=== PATIENT | male | born 1935 | race Caucasian/White ===

== ENCOUNTER 2023-11-21 13:37 | Emergency (ER) | payer MEDICARE, OTHER, SELFPAY ==
[2023-11-21 14:49] VITALS: BMI 28.3
[2023-11-21 15:03] VITALS: BP 134/58
--- NOTE | 2023-11-21 15:06 | ED.GENMED ---
History of Present Illness
<Dalton Hare PA-C - Last Filed: 11/21/23 15:40>
General
Chief Complaint: Catheter/Tube Problem
Source: family
Time Seen by Provider: 11/21/23 14:06
Travel History
Have you had any contact with someone who has COVID-19?: No
Do you have any symptoms of coronavirus? Fever > 100 degrees, chills, cough, shortness of breath, sore throat, loss of taste or smell, muscle aches, or headache?: No
History of Present Illness
History of Present Illness:
88-year-old male with past medical history of CVA presenting to the emergency department for evaluation with family after family report patient's visiting nurse was unable to replace his suprapubic catheter today. Family states that patient has a
suprapubic catheter tract made 5 years ago and they have not had any troubles with replacing catheter. Denies any fevers. No other concerns.
Past History
<Dalton Hare PA-C - Last Filed: 11/21/23 15:40>
Past History
ED Past Medical History: CVA
ED Past Surgical History: Urological
Social History
Tobacco: Non-smoker
Alcohol: None
Drug: None
Personal:
Living: with family
Employment: Retired
Review of Systems
<Dalton Hare PA-C - Last Filed: 11/21/23 15:40>
Review of Systems
All Other Systems: ROS reviewed and negative except as documented in HPI and ROS
Phy Exam
<Daltno Hare PA-C - Last Filed: 11/21/23 15:40>
Physical Exam
Physical Exam:
GENERAL: Alert , in no apparent distress
EYE: conjunctiva clear
Head: Normocephalic atraumatic
NECK: Supple,
ENT: mmm.
LUNGS: no acute respiratory distress
abdomen: Suprapubic tract noted, no active bleeding
NEUROLOGICAL: Alert
SKIN: Warm and dry, skin intact.
MUSCULOSKELETAL: well perfused.
PSYCH: Normal and appropriate interaction.
Course
<Dalton Hare PA-C - Last Filed: 11/21/23 15:40>
Vital Signs
Initial and Last Documented VS:
Initial Vital Signs
Temp Pulse Resp Pulse Ox
98.2 F 87 20 99
11/21/23 13:39 11/21/23 13:39 11/21/23 13:39 11/21/23 13:39
Last Documented Vital Signs
Temp Pulse Resp BP Pulse Ox
98.2 F 71 18 134/58 95
11/21/23 13:39 11/21/23 15:03 11/21/23 15:03 11/21/23 15:03 11/21/23 15:03
<James Suarez DO - Last Filed: 11/21/23 15:10>
Vital Signs
Initial and Last Documented VS:
Initial Vital Signs
Temp Pulse Resp Pulse Ox
98.2 F 87 20 99
11/21/23 13:39 11/21/23 13:39 11/21/23 13:39 11/21/23 13:39
Last Documented Vital Signs
Temp Pulse Resp BP Pulse Ox
98.2 F 71 18 134/58 95
11/21/23 13:39 11/21/23 15:03 11/21/23 15:03 11/21/23 15:03 11/21/23 15:03
Procedures
<Dalton Hare PA-C - Last Filed: 11/21/23 15:40>
Urinary Catheter
Procedure completed by: Payam/Erick
Type of urinary catheter: other (suprapubic)
Catheter size (upper sorbian): 16
Urine description: yellow and blood tinged
Urine output (ml): 200
<Dalton Hare PA-C - Last Filed: 11/21/23 15:40>
MDM/Problems Addressed
MDM/Problems Addressed:
Suprapubic catheter in place without difficulty. Family will ensure close follow-up as an outpatient. Aware of return precautions. Stable for discharge.
<Dalton Hare PA-C - Last Filed: 11/21/23 15:40>
*Critical Care Note
Total Time (30-74mins, 75-104mins- exclusive of procedures): Not Applicable
ED Attending Note
<Dalton Hare PA-C - Last Filed: 11/21/23 15:40>
-
Portions of this chart may have been created with voice recognition software.� Occasional wrong word or��sound alike� substitutions may have occurred due to the inherent limitations of voice recognition software.
<James Suarez DO - Last Filed: 11/21/23 15:10>
ED Attending Note
Patient seen and examined by attending physician: Yes
I performed the substantive portion of visit, reviewed & personally made and approve the management plan that is documented in note by myself or SUE.: Yes
ED Attending Note:
I have seen and evaluated the patient with a iebi-[id number] encounter. I have spoken to the advance practicer provider and involved in the medical history, the physical exam, medical decision making.
Evaluation and management service: agree unless noted differently below.
Results interpretation: agree unless noted differently below.
Focused HPI: 88-year-old male presenting for evaluation of suprapubic catheter issue. His caregiver was unable to place it back and during routine change
Physical exam: Sitting in bed comfortably. No acute distress. Suprapubic catheter site clean and intact
Medical Decision Making: There was initially an issue placing the 16 [place] suprapubic catheter back in. When I attempted it, there was resistance. I had the patient lift his knees up and it went in easily. Patient tolerated procedure well.
Discharge Plan
Departure
Patient Disposition: Home (Routine Discharge)
Date of Disposition: 11/21/23
Time of Disposition: 15:06
Patient with high blood pressure during this ER visit?: No
Discharge Problem:
Suprapubic catheter dysfunction
Instructions: Suprapubic catheter placement
Referrals:
Robert David MD [Family Provider] -
Interventions
Interventions:
*Risk Screen - Suicide Last Done: 11/21/23 13:39
*General Assessment Last Done: 11/21/23 13:39
*Neglect/Abuse Screening Last Done: 11/21/23 13:39
ED- Fall Risk Assessment Last Done: 11/21/23 14:15
*ED COVID-19 Vaccine History Last Done: 11/21/23 14:50
*Nursing Disposition Last Done: 11/21/23 15:34
JI-Kjgrfj-Yeotyugptp Assessment Last Done: 11/21/23 14:15
ED-Male Genitourinary Assessment Last Done: 11/21/23 14:15
Discharge Date and Time
Discharge Date/Time: 11/21/23 15:35
Print Language: BENINESE
== END 2023-11-21 15:35 | disposition home or self-care (01) ==
LOC: EMR 13:37
PROVIDERS: EMERGENCY PHYSICIAN Student in an Organized Health Care Education/Training Program; FAMILY PHYSICIAN Internal Medicine
DX: T83.090A Other mechanical complication of cystostomy catheter, initial encounter (principal); X58.XXXA Exposure to other specified factors, initial encounter; Y73.1 Therapeutic (nonsurgical) and rehabilitative gastroenterology and urology devices associated with adverse incidents
CPT/HCPCS: 99283; 51705